=== PATIENT | male | born 1980 | race Caucasian/White ===

== ENCOUNTER 2022-04-01 14:09 | Emergency (ER) | payer BC ==
[~2022-04-01] VITALS: Ht 162.6 cm; Wt 69.0 kg
[2022-04-01] MEDS ORDERED: IBUPROFEN 400MG TABLET PO ONE (15:00)
[2022-04-01] MEDS ORDERED: HYDROXYZINE 25MG TABLET PO ONE (15:00)
[2022-04-01 15:28] VITALS: BP 133/76
[2022-04-01 15:28] LABS: BASOPHILS % 0.8 % (0.0-2.0); EOSINOPHILS % 0.3 % (0.0-5.0); HEMATOCRIT. 44.8 % (42.0-52.0); HEMOGLOBIN. 15.3 g/dL (14.0-18.0); LYMPHOCYTES % 18.2 % (20.0-50.0); MEAN CORPUSCULAR HEMOGLOBIN 32.8 pg (28.0-32.0); MEAN CORPUSCULAR VOLUME 95.7 fL (80.0-94.0); MEAN PLATELET VOLUME 9.3 fl (7.4-10.4); MONOCYTES % 7.5 % (2.0-8.0); NEUTROPHILS % 73.2 % (40.0-76.0); PLATELET 173 x1000/uL (130-400); RED BLOOD CELL COUNT 4.68 mill/uL (4.7-6.1); RED CELL DISTRIBUTION WIDTH 13.8 % (11.6-14.6)
[2022-04-01 15:29] LABS: CHLORIDE 104 mEq/L (98-107)
== END 2022-04-01 16:48 | disposition home or self-care (01) ==
LOC: ER 14:09
DX: F41.9 Anxiety disorder, unspecified (principal)
CPT/HCPCS: 36415; 80053; 85025; 99283